=== PATIENT | female | born 1995 | race Caucasian/White ===

== ENCOUNTER 2017-02-06 08:34 | Emergency (ER) | payer SELFPAY ==
[~2017-02-06] VITALS: Ht 147.3 cm; Wt 68.0 kg
[~2017-02-06 08:34] MED LIST: AMOXICILLIN500 MG PO; AUGMENTIN500 MG OR; CORTISPORIN OTI10 ML AD; CORTISPORIN1 % OT; TRIMOX500 MG PO; TYLENOL & COD12.5 ML OR; ULTRAM50 MG PO; no homemeds
[2017-02-06 08:35] VITALS: BP 103/62
[2017-02-06] MEDS ORDERED: CORTISPORIN OTI10 ML AD (08:59)
== END 2017-02-06 09:09 | disposition home or self-care (01) | DRG 156 ==
LOC: ED 08:34
PROC: 09C3XZZ Extirpation of Matter from Right External Auditory Canal, External Approach (ICD-10-PCS; principal; 2017-02-06)
DX: T16.1XXA Foreign body in right ear, initial encounter (principal); X58.XXXA Exposure to other specified factors, initial encounter

== ENCOUNTER 2017-10-21 11:53 | Emergency (ER) | payer SELFPAY ==
[~2017-10-21] VITALS: Ht 147.3 cm; Wt 82.0 kg
[2017-10-21] MEDS ORDERED: AMOXICILLIN500 MG PO (12:39)
[2017-10-21 12:41] VITALS: BP 124/70
== END 2017-10-21 12:45 | disposition home or self-care (01) | DRG 153 ==
LOC: ED 11:53
DX: H66.92 Otitis media, unspecified, left ear (principal)

== ENCOUNTER 2018-05-05 16:27 | Emergency (ER) | payer SELFPAY ==
[~2018-05-05] VITALS: Ht 154.9 cm; Wt 77.3 kg
[2018-05-05] MEDS ORDERED: FLOXIN OTIC0.3 % AS (17:15)
[2018-05-05] MEDS ORDERED: AMOXICILLIN/PO500 MG PO (17:15)
[2018-05-05 17:18] VITALS: BP 132/81
== END 2018-05-05 17:23 | disposition home or self-care (01) | DRG 153 ==
LOC: ED 16:27
DX: H66.92 Otitis media, unspecified, left ear (principal); H92.02 Otalgia, left ear

== ENCOUNTER 2019-01-30 16:17 | Emergency (ER) | payer OTHER ==
[~2019-01-30] VITALS: Ht 154.9 cm; Wt 77.0 kg
[~2019-01-30 16:17] MED LIST changes: +AMOXICILLIN/PO500 MG PO; +FLOXIN OTIC0.3 % AS
[2019-01-30 17:10] VITALS: BP 120/58
== END 2019-01-30 17:10 | disposition home or self-care (01) | DRG 156 ==
LOC: ED 16:17
PROC: 3E1B78Z Irrigation of Ear using Irrigating Substance, Via Natural or Artificial Opening (ICD-10-PCS; principal; 2019-01-30)
DX: H92.02 Otalgia, left ear (principal); H61.21 Impacted cerumen, right ear; Z96.22 Myringotomy tube(s) status

== ENCOUNTER 2019-07-22 12:28 | Emergency (ER) | payer OTHER ==
[~2019-07-22] VITALS: Ht 154.9 cm; Wt 78.0 kg
[2019-07-22] MEDS ORDERED: NORTRIPTYLIN10 MG PO (13:00)
[2019-07-22] MEDS ORDERED: LEVOTHYROXINE50 MCG PO (13:00)
[2019-07-22 13:20] VITALS: BP 141/67
== END 2019-07-22 13:20 | disposition home or self-care (01) | DRG 556 ==
LOC: ED 12:28
DX: M79.671 Pain in right foot (principal)

== ENCOUNTER 2019-08-31 20:32 | Emergency (ER) | payer OTHER ==
[~2019-08-31] VITALS: Ht 154.9 cm; Wt 77.2 kg
[~2019-08-31 20:32] MED LIST changes: +LEVOTHYROXINE50 MCG PO; +NORTRIPTYLIN10 MG PO
[2019-08-31] MEDS ORDERED: AMOXICILLIN500 MG PO (21:48)
[2019-08-31 22:00] VITALS: BP 135/74
== END 2019-08-31 22:00 | disposition home or self-care (01) | DRG 153 ==
LOC: ED 20:32
DX: J02.9 Acute pharyngitis, unspecified (principal)

== ENCOUNTER 2020-05-07 22:12 | Emergency (ER) | payer OTHER ==
[~2020-05-07] VITALS: Ht 154.9 cm; Wt 77.0 kg
[2020-05-07] MEDS ORDERED: CLINDAMYCIN300 M1 PO (22:55)
[2020-05-07] MEDS ORDERED: HYDROCO/APAP1 TA9 PO (22:55)
[2020-05-07 22:56] VITALS: BP 119/57
== END 2020-05-07 22:56 | disposition home or self-care (01) | DRG 159 ==
LOC: ED 22:12
DX: K04.7 Periapical abscess without sinus (principal); E03.9 Hypothyroidism, unspecified

== ENCOUNTER 2020-05-20 18:44 | Emergency (ER) | payer OTHER ==
[~2020-05-20] VITALS: Ht 154.9 cm; Wt 75.0 kg
[~2020-05-20 18:44] MED LIST changes: +CLINDAMYCIN300 M1 PO; +HYDROCO/APAP1 TA9 PO
[2020-05-20 19:58] LABS: IMMATURE GRANULOCYTES 0.4 % (0.0-5.0); MEAN CORPUSCULAR HGB 27.6 pG CALC (26.0-32.0); MEAN CORPUSCULAR HGB CONC 32.8 g/dL CAL (32.0-36.0); NEUT# 8.91 thou/uL (2.00-7.15); RED BLOOD COUNT 4.75 mill/uL (4.20-5.60); RED CELL DISTRI WIDTH 13.2 % (11.5-15.5)
[2020-05-20 19:59] LABS: HEMOGLOBIN 13.1 g/dl (12.0-16.0); MEAN CELL VOLUME 84.2 fL CALC (80.0-100.0)
[2020-05-20 20:08] LABS: ALBUMIN 4.6 g/dL (3.2-5.0); ALKALINE PHOSPHATASE 66 u/l (38-126); ANION GAP 14 (6-22 (CALC)); BILIRUBIN, TOTAL 0.6 mg/dL (0.0-1.4); BUN 11 mg/dL (7-17); BUN/CREATININE RATIO 15 (12-20 (CALC)); CARBON DIOXIDE 23 mmol/l (22-30); CHLORIDE 104 mmol/l (95-108); CREATININE 0.7 mg/dL (0.5-1.0); GFR > 60 ML/MIN (>=60 (CALC)); GFR FOR AFR.AMER. > 60 ML/MIN (>=60 (CALC)); SGOT/AST 24 u/l (14-36); SODIUM 137 mmol/l (137-146); TOTAL PROTEIN 7.9 g/dL (6.3-8.2)
[2020-05-20 20:11] LABS: POTASSIUM 4.3 mmol/l (3.5-5.1)
[2020-05-20 21:23] VITALS: BP 120/58
== END 2020-05-20 21:33 | disposition home or self-care (01) | DRG 866 ==
LOC: ED 18:44
PROVIDERS: Family Medicine
DX: B34.9 Viral infection, unspecified (principal); E03.9 Hypothyroidism, unspecified; Z20.828 Contact with and (suspected) exposure to other viral communicable diseases

== ENCOUNTER 2020-08-19 12:04 | Emergency (ER) | payer OTHER ==
[~2020-08-19] VITALS: Ht 154.9 cm; Wt 84.0 kg
[2020-08-19 13:01] VITALS: BP 139/90
== END 2020-08-19 13:01 | disposition home or self-care (01) | DRG 605 ==
LOC: ED 12:04
DX: S00.412A Abrasion of left ear, initial encounter (principal); E03.9 Hypothyroidism, unspecified; H91.90 Unspecified hearing loss, unspecified ear; X58.XXXA Exposure to other specified factors, initial encounter; Y93.E8 Activity, other personal hygiene

== ENCOUNTER 2020-10-06 14:25 | Emergency (ER) | payer OTHER ==
[~2020-10-06] VITALS: Ht 154.9 cm; Wt 70.0 kg
[2020-10-06 16:05] LABS: URINE BILIRUBIN - DIPSTICK NEGATIVE (NEGATIVE); URINE BLOOD DIPSTICK NEGATIVE (NEGATIVE); URINE CLARITY CLEAR; URINE COLOR YELLOW; URINE GLUCOSE - DIPSTICK NEGATIVE (NEGATIVE); URINE KETONE NEGATIVE (NEGATIVE); URINE LEUK ESTERASE SMALL (Negative); URINE NITRITE - DIPSTICK NEGATIVE (Negative); URINE PROTEIN - DIPSTICK NEGATIVE (NEG-TRACE); URINE SPECIFIC GRAVITY 1.025; URINE UROBILINOGEN - DIPSTICK 0.2 E.U./dL (0.2)
[2020-10-06 16:23] LABS: URINE RBC 0-2 RBC/hpf (0-5); URINE SQUAMOUS EPITHELIAL CELL FEW EPI/hpf (0-FEW)
[2020-10-06 17:15] VITALS: BP 114/62
== END 2020-10-06 17:15 | disposition home or self-care (01) | DRG 923 ==
LOC: ED 14:25
DX: Z04.1 Encounter for examination and observation following transport accident (principal); E03.9 Hypothyroidism, unspecified

== ENCOUNTER 2021-06-17 16:06 | Emergency (ER) | payer OTHER ==
[~2021-06-17] VITALS: Ht 154.9 cm; Wt 77.0 kg
[2021-06-17] MEDS ORDERED: [UNRECOGNIZED DRUG - OTHER] IM (17:40)
[2021-06-17 18:15] VITALS: BP 139/75
== END 2021-06-17 18:15 | disposition home or self-care (01) | DRG 866 ==
LOC: ED 16:06
DX: B34.9 Viral infection, unspecified (principal); E03.9 Hypothyroidism, unspecified; H91.90 Unspecified hearing loss, unspecified ear; Z20.822 Contact with and (suspected) exposure to COVID-19

== ENCOUNTER 2021-06-24 15:52 | Emergency (ER) | payer SELFPAY ==
[~2021-06-24] VITALS: Ht 154.9 cm; Wt 85.0 kg
[~2021-06-24 15:52] MED LIST changes: +[UNRECOGNIZED DRUG - OTHER] IM
[2021-06-24] MEDS ORDERED: BACITRACIN3.5 GM TOP (16:51)
[2021-06-24] MEDS ORDERED: AMOX/K CLAV875 M1 PO (16:51)
[2021-06-24 17:05] VITALS: BP 111/62
== END 2021-06-24 17:05 | disposition home or self-care (01) | DRG 605 ==
LOC: ED 15:52
DX: S00.87XA Other superficial bite of other part of head, initial encounter (principal); S00.471A Other superficial bite of right ear, initial encounter; E03.9 Hypothyroidism, unspecified; H91.90 Unspecified hearing loss, unspecified ear; W54.0XXA Bitten by dog, initial encounter

== ENCOUNTER 2021-11-10 18:21 | Emergency (ER) | payer SELFPAY ==
[~2021-11-10 18:21] MED LIST changes: +AMOX/K CLAV875 M1 PO; +BACITRACIN3.5 GM TOP
== END 2021-11-10 19:38 | disposition left against medical advice (07) | DRG 951 ==
LOC: ED 18:21 → LWOBS 19:38
DX: Z53.21 Procedure and treatment not carried out due to patient leaving prior to being seen by health care provider (principal)

== ENCOUNTER 2021-12-08 08:14 | Emergency (ER) | payer SELFPAY ==
[~2021-12-08] VITALS: Ht 154.9 cm; Wt 77.3 kg
[2021-12-08] MEDS ORDERED: LEVOTHYROXIN75 MCG PO (08:38)
[2021-12-08] MEDS ORDERED: HYDROCO/APAP1 TA9 PO (08:39)
[2021-12-08] MEDS ORDERED: CLEOCIN300 MG PO (08:39)
[2021-12-08 08:49] VITALS: BP 108/47
== END 2021-12-08 08:48 | disposition home or self-care (01) | DRG 158 ==
LOC: ED 08:14
DX: K04.7 Periapical abscess without sinus (principal); K02.9 Dental caries, unspecified; M84.68XA Pathological fracture in other disease, other site, initial encounter for fracture; E03.9 Hypothyroidism, unspecified; H91.90 Unspecified hearing loss, unspecified ear

== ENCOUNTER 2022-02-19 16:23 | Emergency (ER) | payer SELFPAY ==
[~2022-02-19] VITALS: Ht 154.9 cm; Wt 91.0 kg
[~2022-02-19 16:23] MED LIST changes: +CLEOCIN300 MG PO; +LEVOTHYROXIN75 MCG PO
[2022-02-19 16:41] VITALS: BP 143/76
[2022-02-19 17:13] VITALS: BP 126/79
[2022-02-19 17:14] LABS: HEMATOCRIT 38.8 % (37.0-47.0); HEMOGLOBIN 13.2 g/dl (12.0-16.0); IMMATURE GRANULOCYTES 0.1 % (0.0-5.0); MEAN CORPUSCULAR HGB 29.6 pG CALC (26.0-32.0); NEUT# 3.93 thou/uL (2.00-7.15); RED BLOOD COUNT 4.46 mill/uL (4.20-5.60); RED CELL DISTRI WIDTH 12.7 % (11.5-15.5)
[2022-02-19 17:30] VITALS: BP 126/77
[2022-02-19 17:37] LABS: ANION GAP 13 (6-22 (CALC)); BUN 11 mg/dL (7-17); BUN/CREATININE RATIO 15 (12-20 (CALC)); CARBON DIOXIDE 26 mmol/l (22-30); CHLORIDE 105 mmol/l (95-108); CREATININE 0.7 mg/dL (0.5-1.0); GFR > 60 ML/MIN (>=60 (CALC)); GFR FOR AFR.AMER. > 60 ML/MIN (>=60 (CALC)); POTASSIUM 4.2 mmol/l (3.5-5.1); SODIUM 139 mmol/l (137-146)
[2022-02-19 18:01] VITALS: BP 115/70
[2022-02-19 19:16] VITALS: BP 113/73
[2022-02-19 19:56] VITALS: BP 113/73
== END 2022-02-19 20:04 | disposition home or self-care (01) | DRG 607 ==
LOC: ED 16:23
PROVIDERS: Family Medicine
DX: R22.1 Localized swelling, mass and lump, neck (principal); E03.9 Hypothyroidism, unspecified
CPT/HCPCS: Q9967

== ENCOUNTER 2023-07-09 18:36 | Emergency (ER) | payer BC ==
[~2023-07-09] VITALS: Ht 154.9 cm; Wt 99.7 kg
[2023-07-09 20:38] LABS: URINE BILIRUBIN - DIPSTICK Negative (NEGATIVE); URINE BLOOD DIPSTICK Negative (NEGATIVE); URINE GLUCOSE - DIPSTICK Negative (NEGATIVE); URINE KETONE Negative (NEGATIVE); URINE LEUK ESTERASE Negative (NEGATIVE); URINE NITRITE - DIPSTICK Negative (Negative); URINE PROTEIN - DIPSTICK Negative (NEG-TRACE); URINE SPECIFIC GRAVITY 1.025
[2023-07-09 20:39] LABS: URINE COLOR Yellow
[2023-07-09 21:00] VITALS: BP 115/71
[2023-07-09 21:07] LABS: BASO% 0.5 % (0-3); EOS% 1.6 % (0-8); HEMATOCRIT 38.9 % (37.0-47.0); HEMOGLOBIN 12.8 g/dl (12.0-16.0); IMMATURE GRANULOCYTES 0.2 % (0.0-5.0); LYMPH% 26.7 % (15-41); MEAN CELL VOLUME 89.2 fL CALC (80.0-100.0); MEAN CORPUSCULAR HGB 29.4 pG CALC (26.0-32.0); MEAN CORPUSCULAR HGB CONC 32.9 g/dL CAL (32.0-36.0); MONO% 5.5 % (2-13); NEUT# 6.62 thou/uL (2.00-7.15); NEUT% 65.5 % (42-76); RED BLOOD COUNT 4.36 mill/uL (4.20-5.60); RED CELL DISTRI WIDTH 12.3 % (11.5-15.5)
[2023-07-09 21:21] LABS: ALBUMIN 4.3 g/dL (3.2-5.0); ALKALINE PHOSPHATASE 54 u/l (38-126); ANION GAP 14 (6-22 (CALC)); BILIRUBIN, TOTAL 0.4 mg/dL (0.02-1.3); BUN 15 mg/dL (7-17); BUN/CREATININE RATIO 21 (12-20 (CALC)); CARBON DIOXIDE 26 mmol/l (22-30); CHLORIDE 101 mmol/l (95-108); CREATININE 0.7 mg/dL (0.5-1.0); GFR FOR AFR.AMER. > 60 ML/MIN (>=60 (CALC)); GFR OTHER RACES > 60 ML/MIN (>=60 (CALC)); LIPASE 87 u/l (23-300); POTASSIUM 4.2 mmol/l (3.5-5.1); SGOT/AST 29 u/l (14-36); SODIUM 136 mmol/l (137-146); TOTAL PROTEIN 7.7 g/dL (6.3-8.2)
[2023-07-09] MEDS ORDERED: MOTRIN800 MG PO (23:03)
[2023-07-09] MEDS ORDERED: LEVOTHYROXIN50 MCG PO (23:06)
[2023-07-09 23:25] VITALS: BP 115/71
== END 2023-07-09 23:28 | disposition home or self-care (01) | DRG 761 ==
LOC: ED 18:36
PROVIDERS: Emergency Medicine
DX: N83.202 Unspecified ovarian cyst, left side (principal); E03.9 Hypothyroidism, unspecified; T38.1X6A Underdosing of thyroid hormones and substitutes, initial encounter; Z91.141 Patient's other noncompliance with medication regimen due to financial hardship
CPT/HCPCS: Q9967

== ENCOUNTER 2024-04-29 20:00 | Emergency (ER) | payer BC ==
[~2024-04-29] VITALS: Ht 154.9 cm; Wt 90.0 kg
[~2024-04-29 20:00] MED LIST changes: +LEVOTHYROXIN50 MCG PO; +MOTRIN800 MG PO
[2024-04-29] MEDS ORDERED: FLOXIN OTIC0.3 % OT (21:29)
[2024-04-29 21:38] VITALS: BP 140/76
== END 2024-04-29 21:38 | disposition home or self-care (01) | DRG 156 ==
LOC: ED 20:00
DX: H60.92 Unspecified otitis externa, left ear (principal); E03.9 Hypothyroidism, unspecified; Z96.22 Myringotomy tube(s) status

== ENCOUNTER 2024-12-06 17:06 | Emergency (ER) | payer BC ==
[~2024-12-06] VITALS: Ht 154.9 cm; Wt 78.0 kg
[2024-12-06] VITALS (8 sets, daily range): BP systolic 106–150; BP diastolic 62–82
[~2024-12-06 17:06] MED LIST changes: +FLOXIN OTIC0.3 % OT
[2024-12-06] MEDS ORDERED: PENICILLN VK500 MG PO (18:01)
[2024-12-06] MEDS ORDERED: predniSONE 20 MG/TAB PO ONE (18:10)
== END 2024-12-06 18:40 | disposition home or self-care (01) | DRG 153 ==
LOC: ED 17:06
DX: J02.9 Acute pharyngitis, unspecified (principal); E03.9 Hypothyroidism, unspecified; Z96.22 Myringotomy tube(s) status; Z20.822 Contact with and (suspected) exposure to COVID-19